=== PATIENT | female | born 1945 | race Caucasian/White ===

== ENCOUNTER 2019-10-13 04:40 | Inpatient (IN) | payer OTHER ==
--- NOTE | 2019-10-13 04:59 | PDOC ---
History of Present Illness - General Chief Complaint: Pain, Acute Stated Complaint: UPPER ABDOMINAL/LOWER CHEST PAIN Time Seen by Provider: 10/13/19 04:40 - History of Present Illness Initial Comments: Martina Atkinson is a 74 y/o female with PMH significant for breast CA s/p bilateral mastectomy, colon perforation 2/2 colonoscopy s/p colostomy and reversal, HTN, a-fib (on eliquis), bilateral knee replacements, presenting today with abdominal pain. Reports that she went to her daughter's place over the long weekend and had brunch and a BBQ. Pain is worse in the epigastric and RUQ areas. Pain is intermittent and sharp without anything that brings it on or makes it worse. Reports nausea without vomiting. Pain started at 8pm today. Reports increased bowel movements but no diarrhea or constipation. No fever/chills. No cough. No dysuria. 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 Home Medications: Ambulatory Orders Amlodipine Besylate [Norvasc -] 5 mg PO DAILY 10/13/19 Apixaban [Eliquis] 5 mg PO BID 10/13/19 Metoprolol Succinate 50 mg PO DAILY 10/13/19 Anemia: No Asthma: No Cancer: Yes (BILATERAL BREAST CA 1991,RT) Cardiac Disorders: No CVA: No COPD: No CHF: No Dementia: No Diabetes: No GI Disorders: Yes (PERFORATED COLON 2001 AFTER COLONOSCOPY) Disorders: No HTN: Yes Hypercholesterolemia: No Liver Disease: No Seizures: No Thyroid Disease: Yes (HYPERPARATHYROID 2005) - Surgical History Abdominal Surgery: Yes (COLON RESECTION FROM COLONOSCOPY PERFORATION,TEMP COLOSTOMY,REVERSAL,) Appendectomy: No Cardiac Surgery: No Cholecystectomy: No Lung Surgery: No Neurologic Surgery: No Orthopedic Surgery: Yes - Psycho-Social/Smoking History Smoking History: Never smoked Have you smoked in the past 12 months: No If you are a former smoker, when did you quit?: - Substance Abuse Hx (Audit-C & DAST Scrn) How often the patient has a drink containing alcohol: Never Score: In Men: 4 or > Positive; In Women: 3 or > Positive: 0 Screen Result (Pos requires Nsg. Audit-10AR): Negative In the last yr the pt used illegal drug/Rx for NonMed reason: No Score: Yes response is considered Positive: 0 Screen Result (Positive result requires Nsg. DAST-10): Negative Review of Systems - Review of Systems Comments:: GENERAL/CONSTITUTIONAL: No fever or chills. No weakness._ HEAD, EYES, EARS, NOSE AND THROAT: No change in vision. No change in hearing. No sore throat._ CARDIOVASCULAR: No chest pain or shortness of breath_ RESPIRATORY: Denies cough, hemoptysis_ GASTROINTESTINAL: Reports abdominal pain. Reports increased in bowel movements. No nausea, vomiting, diarrhea or constipation._ GENITOURINARY: No dysuria, frequency, or change in urination._ MUSCULOSKELETAL: No joint or muscle swelling or pain. No neck or back pain._ SKIN: No rash_ NEUROLOGIC: No headache, vertigo, loss of consciousness, or change in strength/sensation._ ENDOCRINE: No increased thirst. No abnormal weight change_ HEMATOLOGIC/LYMPHATIC: No anemia, easy bleeding, or history of blood clots._ ALLERGIC/IMMUNOLOGIC: No hives or skin allergy._ *Physical Exam - Vital Signs Last Vital Signs Temp Pulse Resp BP Pulse Ox 98.1 F 81 17 154/89 98 10/13/19 04:40 10/13/19 04:40 10/13/19 04:40 10/13/19 04:40 10/13/19 04:40 - Physical Exam GENERAL: Awake, alert, and oriented to person/place/time, in no acute distress_ HEAD: No signs of trauma, normocephalic, atraumatic _ EYES: PERRLA, EOMI, sclera anicteric, conjunctiva clear_ ENT: Hearing grossly normal, nares patent, oropharynx clear without exudates. No uvular deviation. Moist mucosa_ NECK: Normal ROM, supple, no lymphadenopathy, JVD, or masses_ LUNGS: No distress, speaks in full sentences, clear to auscultation bilaterally _ HEART: Regular rate and rhythm, normal S1 and S2, no murmurs appreciated, peripheral pulses normal and equal bilaterally._ ABDOMEN: Soft, minimal diffuse TTP worse in the RUQ and epigastrium, normoactive bowel sounds. No guarding, no rebound. No masses_ EXTREMITIES: Normal inspection, Normal range of motion, no edema. No clubbing or cyanosis_ NEUROLOGICAL: Cranial nerves II through XII grossly intact. Normal speech, normal gait, no focal sensorimotor deficits _ SKIN: Warm, Dry, normal turgor, no rashes or lesions noted_ ED Treatment Course - LABORATORY CBC & Chemistry Diagram: 10/13/19 05:05 10/13/19 05:05 Medical Decision Making - Medical Decision Making 10/13/19 05:10 74F presenting with epigastric and RUQ abdominal pain that started at 8pm today. -cbc, cmp -ekg, trop, cxr -lactic -lipase -coags -CT abd/pelv with IV contrast 10/13/19 05:15 EKG shows 82 bpm, sinus rhythm with PACs, nml axis, no ST elevation, QTc 436. 10/13/19 06:26 Labs reviewed. Lactic elevated. Will start fluids. Laboratory Last Values WBC 8.8 K/mm3 (4.0-10.0) 10/13/19 05:05 RBC 4.61 M/mm3 (3.60-5.2) 10/13/19 05:05 Hgb 14.5 GM/dL (10.7-15.3) 10/13/19 05:05 Hct 43.1 % (32.4-45.2) 10/13/19 05:05 MCV 93.4 fl (80-96) 10/13/19 05:05 MCH 31.5 pg (25.7-33.7) 10/13/19 05:05 MCHC 33.7 g/dl (32.0-36.0) 10/13/19 05:05 RDW 13.9 % (11.6-15.6) 10/13/19 05:05 Plt Count 269 K/MM3 (134-434) 10/13/19 05:05 MPV 9.1 fl (7.5-11.1) 10/13/19 05:05 Absolute Neuts (auto) 7.2 K/mm3 (1.5-8.0) 10/13/19 05:05 Neutrophils % 82.1 % (42.8-82.8) 10/13/19 05:05 Lymphocytes % 12.6 % (8-40) 10/13/19 05:05 Monocytes % 4.6 % (3.8-10.2) 10/13/19 05:05 Eosinophils % 0.3 % (0-4.5) 10/13/19 05:05 Basophils % 0.4 % (0-2.0) 10/13/19 05:05 Nucleated RBC % 0 % (0-0) 10/13/19 05:05 PT with INR 12.70 SEC (9.7-13.0) 10/13/19 05:05 INR 1.08 (0.83-1.09) 10/13/19 05:05 PTT (Actin FS) 34.1 SECONDS (25.2-36.5) 10/13/19 05:05 Sodium 136 mmol/L (136-145) 10/13/19 05:05 Potassium 4.2 mmol/L (3.5-5.1) 10/13/19 05:05 Chloride 97 mmol/L (98-107) L 10/13/19 05:05 Carbon Dioxide 31 mmol/L (21-32) 10/13/19 05:05 Anion Gap 9 MMOL/L (8-16) 10/13/19 05:05 BUN 15.4 mg/dL (7-18) 10/13/19 05:05 Creatinine 0.9 mg/dL (0.55-1.3) 10/13/19 05:05 Est GFR (CKD-EPI)AfAm 71.98 10/13/19 05:05 Est GFR (CKD-EPI)NonAf 62.11 10/13/19 05:05 Random Glucose 162 mg/dL (74-106) H 10/13/19 05:05 Lactic Acid 3.0 mmol/L (0.4-2.0) H* 10/13/19 05:05 Calcium 9.6 mg/dL (8.5-10.1) 10/13/19 05:05 Total Bilirubin 1.4 mg/dL (0.2-1) H 10/13/19 05:05 AST 16 U/L (15-37) 10/13/19 05:05 ALT 18 U/L (13-61) 10/13/19 05:05 Alkaline Phosphatase 98 U/L (45-117) 10/13/19 05:05 Creatine Kinase 35 U/L (26-192) 10/13/19 05:05 Troponin I < 0.02 ng/ml (0.00-0.05) 10/13/19 05:05 Total Protein 7.6 g/dl (6.4-8.2) 10/13/19 05:05 Albumin 3.9 g/dl (3.4-5.0) 10/13/19 05:05 Lipase 70 U/L (73-393) L 10/13/19 05:05 10/13/19 06:27 CXR negative for acute intrathoracic pathology. 10/13/19 06:44 Pt reassessed. Reports vomiting a few times after initial presentation. 10/13/19 07:00 Pt s/o to Dr. Euceda pending CT abd and RUQ US and disposition. Discharge - Discharge Information Problems reviewed: Yes Clinical Impression/Diagnosis: SBO (small bowel obstruction) Condition: Fair - Follow up/Referral - Patient Discharge Instructions - Post Discharge Activity
[2019-10-13 05:27] LABS: BASO % 0.4 % (0-2.0); EOS % 0.3 % (0-4.5); HEMATOCRIT 43.1 % (32.4-45.2); HEMOGLOBIN 14.5 GM/dL (10.7-15.3); LYMPH % 12.6 % (8-40); MCH 31.5 pg (25.7-33.7); MCHC 33.7 g/dl (32.0-36.0); MEAN CELL VOLUME 93.4 fl (80-96); MEAN PLT VOLUME 9.1 fl (7.5-11.1); MONO % 4.6 % (3.8-10.2); NEUT % 82.1 % (42.8-82.8); PLATELET COUNT 269 K/MM3 (134-434); RBC 4.61 M/mm3 (3.60-5.2); RDW 13.9 % (11.6-15.6); WHITE BLOOD COUNT 8.8 K/mm3 (4.0-10.0)
[2019-10-13 05:38] LABS: INR 1.08 (0.83-1.09); PROTHROMBIN TIME (PATIENT) 12.7 SEC (9.7-13.0)
[2019-10-13 05:40] LABS: ACTIVATED PTT 34.1 SECONDS (25.2-36.5)
--- NOTE | 2019-10-13 05:46 | PDOC ---
Attending Attestation - Resident Resident Name: AbelKelvin - ED Attending Attestation I have performed the following: I have examined & evaluated the patient, The case was reviewed & discussed with the resident, I agree w/resident's findings & plan, Exceptions are as noted - HPI HPI: 10/13/19 05:44 74 F with h/o breast CA s/p b/l mastectomy, perforated colon s/p colostomy s/p reversal, HTN, afib on eliquis, presenting with abdominal pain. Pt states that it began last night after eating and worsened today. Denies any N/V. Denies diarrhea but reports multiple bowel movements. No F/C. No abdominal distention. - Physicial Exam PE: 10/13/19 05:45 See resident exam - Medical Decision Making 10/13/19 05:45 74 F with RUQ abdominal pain. Will evaluate for leonid. Also consider SBO given prior surgeries. - Labs - CTAP - RUQ sono when available Discharge - Discharge Information Problems reviewed: Yes Clinical Impression/Diagnosis: SBO (small bowel obstruction) Condition: Fair - Follow up/Referral - Patient Discharge Instructions - Post Discharge Activity
[2019-10-13 05:51] LABS: ALBUMIN 3.9 g/dl (3.4-5.0); ALK PHOS 98 U/L (45-117); ANION GAP 9 MMOL/L (8-16); BILIRUBIN,TOTAL 1.4 mg/dL (0.2-1); BLOOD UREA NITROGEN 15.4 mg/dL (7-18); CALCIUM 9.6 mg/dL (8.5-10.1); CHLORIDE 97 mmol/L (98-107); CO2 31 mmol/L (21-32); CREATININE 0.9 mg/dL (0.55-1.3); GLUCOSE,RANDOM 162 mg/dL (74-106); LIPASE 70 U/L (73-393); POTASSIUM 4.2 mmol/L (3.5-5.1); SGOT/AST 16 U/L (15-37); SGPT/ALT 18 U/L (13-61); SODIUM 136 mmol/L (136-145); TOT PROT 7.6 g/dl (6.4-8.2)
[2019-10-13] MEDS ORDERED: SODIUM CHLORIDE 0.9% 500 ML INFUS.BAG IV ONE ×2 (06:27→07:57)
[2019-10-13] MEDS ORDERED: ONDANSETRON 4 MG/2 ML VIAL IVPUSH ONE (07:32)
--- NOTE | 2019-10-13 10:19 | EKG ---
Test Reason : Blood Pressure : / mmHG Vent. Rate : 082 BPM Atrial Rate : 082 BPM P-R Int : 164 ms QRS Dur : 086 ms QT Int : 374 ms P-R-T Axes : 025 043 047 degrees QTc Int : 436 ms SINUS RHYTHM WITH PREMATURE ATRIAL COMPLEXES NONSPECIFIC ST ABNORMALITY ABNORMAL ECG NO PREVIOUS ECGS AVAILABLE Confirmed by Mmaie Gonzales ([id number]) on 10/13/2019 10:18:55 AM Referred By: Confirmed By:Mamie Gonzales
--- NOTE | 2019-10-13 10:53 | PDOC ---
*Physical Exam - Vital Signs Last Vital Signs Temp Pulse Resp BP Pulse Ox 98.0 F 81 16 142/76 95 10/13/19 06:52 10/13/19 06:52 10/13/19 06:52 10/13/19 06:52 10/13/19 06:52 <Quinn Euceda - Last Filed: 10/13/19 11:30> - Vital Signs Last Vital Signs Temp Pulse Resp BP Pulse Ox 98.0 F 81 16 142/76 95 10/13/19 06:52 10/13/19 06:52 10/13/19 06:52 10/13/19 06:52 10/13/19 06:52 <Shahnaz Singh Kayla - Last Filed: 10/13/19 12:25> ED Treatment Course - LABORATORY CBC & Chemistry Diagram: 10/13/19 05:05 10/13/19 05:05 - ADDITIONAL ORDERS Additional order review: Laboratory Results 10/13/19 10/13/19 10/13/19 05:05 05:05 05:05 PT with INR 12.70 INR 1.08 PTT (Actin FS) 34.1 Sodium 136 Potassium 4.2 Chloride 97 L Carbon Dioxide 31 Anion Gap 9 BUN 15.4 Creatinine 0.9 Est GFR (CKD-EPI)AfAm 71.98 Est GFR (CKD-EPI)NonAf 62.11 Random Glucose 162 H Lactic Acid 3.0 H* Calcium 9.6 Total Bilirubin 1.4 H AST 16 ALT 18 Alkaline Phosphatase 98 Creatine Kinase 35 Troponin I < 0.02 Total Protein 7.6 Albumin 3.9 Lipase 70 L 10/13/19 05:05 RBC 4.61 MCV 93.4 MCHC 33.7 RDW 13.9 MPV 9.1 Neutrophils % 82.1 Lymphocytes % 12.6 Monocytes % 4.6 Eosinophils % 0.3 Basophils % 0.4 - Medications Given in the ED: ED Medications Discontinued Medications Generic Name Dose Route Start Last Admin Trade Name Freq PRN Reason Stop Dose Admin Ondansetron HCl 4 mg 10/13/19 07:32 10/13/19 07:44 Zofran Injection IVPUSH 10/13/19 07:33 4 mg ONCE ONE Administration Sodium Chloride 500 ml 10/13/19 06:27 10/13/19 06:44 Normal Saline - IV 10/13/19 06:28 500 ml ONCE ONE Administration Sodium Chloride 1,000 ml 10/13/19 07:57 10/13/19 10:26 Normal Saline - IV 10/13/19 07:58 1,000 ml ONCE ONE Administration <Quinn Euceda - Last Filed: 10/13/19 11:30> - LABORATORY CBC & Chemistry Diagram: 10/13/19 05:05 10/13/19 05:05 - ADDITIONAL ORDERS Additional order review: Laboratory Results 10/13/19 10/13/19 10/13/19 05:05 05:05 05:05 PT with INR 12.70 INR 1.08 PTT (Actin FS) 34.1 Sodium 136 Potassium 4.2 Chloride 97 L Carbon Dioxide 31 Anion Gap 9 BUN 15.4 Creatinine 0.9 Est GFR (CKD-EPI)AfAm 71.98 Est GFR (CKD-EPI)NonAf 62.11 Random Glucose 162 H Lactic Acid 3.0 H* Calcium 9.6 Total Bilirubin 1.4 H AST 16 ALT 18 Alkaline Phosphatase 98 Creatine Kinase 35 Troponin I < 0.02 Total Protein 7.6 Albumin 3.9 Lipase 70 L 10/13/19 05:05 RBC 4.61 MCV 93.4 MCHC 33.7 RDW 13.9 MPV 9.1 Neutrophils % 82.1 Lymphocytes % 12.6 Monocytes % 4.6 Eosinophils % 0.3 Basophils % 0.4 - Medications Given in the ED: ED Medications Discontinued Medications Generic Name Dose Route Start Last Admin Trade Name Freq PRN Reason Stop Dose Admin Benzocaine/Butamben/Tetracaine HCl 1 spray 10/13/19 10:56 10/13/19 11:38 Cetacaine [place] - TP 10/13/19 10:57 1 spray ONCE ONE Administration Lidocaine HCl 10 applic 10/13/19 10:56 10/13/19 11:38 Xylocaine 2% Jelly TP 10/13/19 10:57 10 applic ONCE ONE Administration Ondansetron HCl 4 mg 10/13/19 07:32 10/13/19 07:44 Zofran Injection IVPUSH 10/13/19 07:33 4 mg ONCE ONE Administration Sodium Chloride 500 ml 10/13/19 06:27 10/13/19 06:44 Normal Saline - IV 10/13/19 06:28 500 ml ONCE ONE Administration Sodium Chloride 1,000 ml 10/13/19 07:57 10/13/19 10:26 Normal Saline - IV 10/13/19 07:58 1,000 ml ONCE ONE Administration <Shahnaz Singh - Last Filed: 10/13/19 12:25> Medical Decision Making - Medical Decision Making Patient Signed out to me from night team with abdominal pain pending CT and US US: Cholelithiasis, no evidence of cholecystitis CT: Partial high grade SBO Re-assessment: Patient informed about her SBO, told patient she will need surgical consult and admission - Tylenol for pain control Plan: NPO, IV fluids, NG tube, Surgical consult, admission to hospital - NG tube placed on continuous low suction Surgical Consult: I spoke with Dr. Raman, he is aware of patient, will come and evaluate Dispo: Admission to hospital 10/13/19 11:29 - Patient microblogged for admission <Quinn Euceda - Last Filed: 10/13/19 11:30> - Medical Decision Making agree with resident note signed out at 7AM pending imaging no pain nausea CT with high grade partial SBO. cholelithiasis no cholecystitis NGT NPO d/w Dr Raman for consultation admit t hospitalist group for medical management, NPO, pain control. NGT, SBO management, close observation. 10/13/19 12:24 <Shahnaz Singh - Last Filed: 10/13/19 12:25> Discharge - Discharge Information Problems reviewed: Yes - Admission Yes <Quinn Euceda - Last Filed: 10/13/19 11:30> <Shahnaz Singh - Last Filed: 10/13/19 12:25> - Discharge Information Clinical Impression/Diagnosis: SBO (small bowel obstruction) Condition: Fair
[2019-10-13] MEDS ORDERED: LIDOCAINE HCL 2% JELLY (30 ML/TUBE) TP ONE (10:56)
[2019-10-13] MEDS ORDERED: TETRACAINE/BENZOCAINE/BUTAMBEN 20 GM SPR TP ONE (10:56)
[2019-10-13] MEDS ORDERED: LACTATED RINGERS SOLUTION 1,000 ML/1,000 ML INFUS.BAG IV SCH (11:00)
[2019-10-13] MEDS ORDERED: LIDOCAINE HCL 2% JELLY (5 ML/TUBE) ONE (11:00)
[2019-10-13] MEDS ORDERED: BENZOCAINE 20% 57 GM BOTTLE TP ONE (11:01)
[2019-10-13] MEDS ORDERED: ACETAMINOPHEN 1000 MG/100 ML VIAL (NON FORMULARY) IVPB ONE (11:30)
[2019-10-13] MEDS ORDERED: ACETAMINOPHEN INJECTION 100 ML IVPB ONE (12:17)
--- NOTE | 2019-10-13 14:56 | HP ---
CHIEF COMPLAINT: abdominal pain PCP: Daisy Wilson HISTORY OF PRESENT ILLNESS: 74 yo F PMH of breast Ca (s/p b/l mastectomy @ 46yo) , Afib ( on eliquis, s/p ablation and cardioversion 04/2019) colon perforation 2/2 colonoscopy s/p colostomy and reversal, hx of GBS ( from flu shot)presents to ED for abdominal pain. pt states that the pain was RLQ and sharp. she states earlier in the day she had > 5 loose BM . she endorsed nausea and vomiting x3. she denies any prior events. denies fevers and chills ER course was notable for: (1) Abdomen/ Pelvis CT- partial SBO (2)2.5 L IVF (3)Surgery consulted, recommending NGT , NPO Recent Travel: denies PAST MEDICAL HISTORY:see above PAST SURGICAL HISTORY: parathyroidectomy Social History: Smoking: prior hx Alcohol:denies Drugs: denies Family Hx: non contributory Allergies Influenza Virus Vaccines Allergy (Severe, Verified 10/13/19 04:53) GUILLAIN-BARRE SYNDROME HOME MEDICATIONS: Home Medications Medication Instructions Recorded Amlodipine Besylate [Norvasc -] 5 mg PO DAILY 10/13/19 Apixaban [Eliquis] 0 mg PO BID 10/13/19 Metoprolol Succinate 25 mg PO DAILY 10/13/19 REVIEW OF SYSTEMS CONSTITUTIONAL: Absent: fever, chills, diaphoresis, generalized weakness, malaise, loss of appetite, weight change HEENT: Absent: rhinorrhea, nasal congestion, throat pain, throat swelling, difficulty swallowing, mouth swelling, ear pain, eye pain, visual changes CARDIOVASCULAR: Absent: chest pain, syncope, palpitations, irregular heart rate, lightheadedness, peripheral edema RESPIRATORY: Absent: cough, shortness of breath, dyspnea with exertion, orthopnea, wheezing, stridor, hemoptysis GASTROINTESTINAL: Present: abdomen pain, distension, nausea, vomiting Absent: abdominal distension, diarrhea, constipation, melena, hematochezia GENITOURINARY: Absent: dysuria, frequency, urgency, hesitancy, hematuria, flank pain, genital pain MUSCULOSKELETAL: Absent: myalgia, arthralgia, joint swelling, back pain, neck pain SKIN: Absent: rash, itching, pallor HEMATOLOGIC/IMMUNOLOGIC: Absent: easy bleeding, easy bruising, lymphadenopathy, frequent infections ENDOCRINE: Absent: unexplained weight gain, unexplained weight loss, heat intolerance, cold intolerance NEUROLOGIC: Absent: headache, focal weakness or paresthesias, dizziness, unsteady gait, seizure, mental status changes, bladder or bowel incontinence PHYSICAL EXAMINATION Vital Signs - 24 hr 10/13/19 10/13/19 10/13/19 04:40 04:50 06:35 Temperature 98.1 F 98.5 F Pulse Rate 81 Pulse Rate [ 77 80 Radial] Respiratory 17 18 18 Rate Blood Pressure 154/89 Blood Pressure 143/86 142/76 [Right Arm] O2 Sat by Pulse 98 97 96 Oximetry (%) 10/13/19 06:52 Temperature 98.0 F Pulse Rate Pulse Rate [ 81 Radial] Respiratory 16 Rate Blood Pressure Blood Pressure 142/76 [Right Arm] O2 Sat by Pulse 95 Oximetry (%) GENERAL: Awake, alert, and fully oriented, in no acute distress. HEAD: Normal with no signs of trauma. EYES: Pupils equal, round and reactive to light, extraocular movements intact EARS, NOSE, THROAT: oropharynx clear without exudates. Moist mucous membranes. NGT in place LUNGS: Breath sounds equal, clear to auscultation bilaterally. No accessory muscle use. HEART: Regular rate and rhythm, normal S1 and S2 without murmur ABDOMEN: Soft, nontender, not distended, bowel sounds present , no guarding, no rebound MUSCULOSKELETAL: Normal range of motion at all joints. No bony deformities or tenderness. No CVA tenderness. UPPER EXTREMITIES: 2+ pulses, warm, well-perfused. No cyanosis. No clubbing. No peripheral edema. LOWER EXTREMITIES: 2+ pulses, warm, well-perfused. No calf tenderness. No peripheral edema. NEUROLOGICAL: Cranial nerves II-XII intact. Normal speech. Normal gait. PSYCHIATRIC: Cooperative. Good eye contact. Appropriate mood and affect. SKIN: Warm, dry, normal turgor, no rashes or lesions noted, normal capillary refill. Laboratory Last Values WBC 8.8 K/mm3 (4.0-10.0) 10/13/19 05:05 RBC 4.61 M/mm3 (3.60-5.2) 10/13/19 05:05 Hgb 14.5 GM/dL (10.7-15.3) 10/13/19 05:05 Hct 43.1 % (32.4-45.2) 10/13/19 05:05 MCV 93.4 fl (80-96) 10/13/19 05:05 MCH 31.5 pg (25.7-33.7) 10/13/19 05:05 MCHC 33.7 g/dl (32.0-36.0) 10/13/19 05:05 RDW 13.9 % (11.6-15.6) 10/13/19 05:05 Plt Count 269 K/MM3 (134-434) 10/13/19 05:05 MPV 9.1 fl (7.5-11.1) 10/13/19 05:05 Absolute Neuts (auto) 7.2 K/mm3 (1.5-8.0) 10/13/19 05:05 Neutrophils % 82.1 % (42.8-82.8) 10/13/19 05:05 Lymphocytes % 12.6 % (8-40) 10/13/19 05:05 Monocytes % 4.6 % (3.8-10.2) 10/13/19 05:05 Eosinophils % 0.3 % (0-4.5) 10/13/19 05:05 Basophils % 0.4 % (0-2.0) 10/13/19 05:05 Nucleated RBC % 0 % (0-0) 10/13/19 05:05 PT with INR 12.70 SEC (9.7-13.0) 10/13/19 05:05 INR 1.08 (0.83-1.09) 10/13/19 05:05 PTT (Actin FS) 34.1 SECONDS (25.2-36.5) 10/13/19 05:05 Sodium 136 mmol/L (136-145) 10/13/19 05:05 Potassium 4.2 mmol/L (3.5-5.1) 10/13/19 05:05 Chloride 97 mmol/L (98-107) L 10/13/19 05:05 Carbon Dioxide 31 mmol/L (21-32) 10/13/19 05:05 Anion Gap 9 MMOL/L (8-16) 10/13/19 05:05 BUN 15.4 mg/dL (7-18) 10/13/19 05:05 Creatinine 0.9 mg/dL (0.55-1.3) 10/13/19 05:05 Est GFR (CKD-EPI)AfAm 71.98 10/13/19 05:05 Est GFR (CKD-EPI)NonAf 62.11 10/13/19 05:05 Random Glucose 162 mg/dL (74-106) H 10/13/19 05:05 Lactic Acid 1.9 mmol/L (0.4-2.0) 10/13/19 11:30 Calcium 9.6 mg/dL (8.5-10.1) 10/13/19 05:05 Total Bilirubin 1.4 mg/dL (0.2-1) H 10/13/19 05:05 AST 16 U/L (15-37) 10/13/19 05:05 ALT 18 U/L (13-61) 10/13/19 05:05 Alkaline Phosphatase 98 U/L (45-117) 10/13/19 05:05 Creatine Kinase 35 U/L (26-192) 10/13/19 05:05 Troponin I < 0.02 ng/ml (0.00-0.05) 10/13/19 05:05 Total Protein 7.6 g/dl (6.4-8.2) 10/13/19 05:05 Albumin 3.9 g/dl (3.4-5.0) 10/13/19 05:05 Lipase 70 U/L (73-393) L 10/13/19 05:05 Blood Type A POSITIVE 10/13/19 11:30 Antibody Screen Negative 10/13/19 11:30 ASSESSMENT/PLAN: 74 yo F PMH of breast Ca (s/p b/l mastectomy @ 46yo) , colon perforation 2/2 colonoscopy s/p colostomy and reversal, hx of GBS ( from flu shot)presents to ED for abdominal pain. Pt is admitted for SBO SBO - abdomen / pelvis CT reviewed. high grade partial SBO. likely 2/2 adhesions - Surgery consulted, Dr. Raman - NPO, IVF, NGT - cont to monitor - lactic acidosis improved 3--> 1.9 HTN - hold PO antihypertensives -Lopressor 5 IV for SBP> 150 DVT ppx: hold chemical ppx in setting of NGT, SCDs F/E/N - IV NS @ 100 cc/hr - monitor lytes - NPO Dispo: admit to medicine Visit type - Emergency Visit Emergency Visit: Yes ED Registration Date: 10/13/19 Care time: The patient presented to the Emergency Department on the above date and was hospitalized for further evaluation of their emergent condition. - New Patient This patient is new to me today: Yes - Critical Care Critical Care patient: No ATTENDING PHYSICIAN STATEMENT I saw and evaluated the patient. I reviewed the resident's note and discussed the case with the resident. I agree with the resident's findings and plan as documented. SUBJECTIVE: OBJECTIVE: ASSESSMENT AND PLAN:
--- NOTE | 2019-10-13 15:24 | PN ---
Teaching Attending Note Name of Resident: Kassy De Leon ATTENDING PHYSICIAN STATEMENT I saw and evaluated the patient. I reviewed the resident's note and discussed the case with the resident. I agree with the resident's findings and plan as documented. SUBJECTIVE:74 yo F PMH of breast Ca (s/p b/l mastectomy @ 46yo) , colon perforation 2/2 colonoscopy s/p colostomy and reversal, hx of GBS ( from flu shot)presents to ED for abdominal pain. pt states that the pain was RLQ and sharp. she states earlier in the day she had > 5 loose BM . she endorsed nausea and vomiting x3 in the ER. she denies any prior events. and no fever, no chills, OBJECTIVE: appears comfortable nad alert awake oriented into 3, vss neck supple no jvd cvs s1/s2/0 chest ctab abd soft, tender to deep palpation R paraumbijlical, bs+ and normal,. ext no c/c/e neuro non focal ASSESSMENT AND PLAN Partial SBO npo, ivf and NGT to low suctioning, surgical consult, afib continue home meds, htn will continue current meds, dvt prophylaxis scds,
--- NOTE | 2019-10-13 15:26 | CONSULT ---
- Consultation REQUESTING PROVIDER: Kinsey TREJO CONSULT REQUEST: We have been asked to surgically evaluate this patient for intestinal obstruction. PCP:Carina Booth MD HISTORY OF PRESENT ILLNESS: CTSP who presented for e/m of crampy abdominal pain which is generalized after eating; she is passing flatus and denies n/v. PMHx: HTN/afib PSHx: Hartmans procedure and subsequent reversal after colonic perforation du ring colonoscopy/incarcerated incisional hernia repair w/mesh. Home Medications Medication Instructions Recorded Amlodipine Besylate [Norvasc -] 5 mg PO DAILY 10/13/19 Apixaban [Eliquis] 0 mg PO BID 10/13/19 Metoprolol Succinate 25 mg PO DAILY 10/13/19 Allergies Allergy/AdvReac Type Severity Reaction Status Date / Time Influenza Virus Vaccines Allergy Severe GUILLAIN-BARRE Verified 10/13/19 04:53 SYNDROME REVIEW OF SYSTEMS: CONSTITUTIONAL: Absent: fever, chills, diaphoresis, generalized weakness, malaise, loss of appetite, weight change CARDIOVASCULAR: Absent: chest pain, syncope, palpitations, Present: irregular heart rate, lightheadedness, Absent: peripheral edema RESPIRATORY: Absent: cough, shortness of breath, dyspnea with exertion, wheezing, stridor, hemoptysis GASTROINTESTINAL: Absent: abdominal pain, abdominal distension, nausea, vomiting, diarrhea, constipation, melena, hematochezia GENITOURINARY: Absent: dysuria, frequency, urgency, hesitancy, hematuria, flank pain, genital pain MUSCULOSKELETAL: Absent: myalgia, arthralgia, joint swelling, back pain, neck pain SKIN: Absent: rash, itching, pallor HEMATOLOGIC/IMMUNOLOGIC: Absent: easy bleeding, easy bruising, lymphadenopathy NEUROLOGIC: Absent: headache, focal weakness, paresthesias, dizziness, unsteady gait, seizure, mental status changes, bladder or bowel incontinence PSYCHIATRIC: Absent: anxiety, depression, suicidal or homicidal ideation, hallucinations. PHYSICAL EXAM: GENERAL: Awake, alert, and fully oriented, in no acute distress. HEAD: Normal with no signs of trauma. EYES: PERRL, sclera anicteric, conjunctiva clear. NECK: Normal ROM, supple without lymphadenopathy, JVD, or masses. ABDOMEN: Soft, nontender, not distended, normoactive bowel sounds, no guarding, no rebound, no masses. No organomegaly. Healed scras; no hernias. MUSCULOSKELETAL: Normal ROM at all joints. No bony deformities or tenderness. No CVA tenderness. UPPER EXTREMITIES: 2+ pulses, warm, well-perfused. No cyanosis. Cap refill <2 seconds. No peripheral edema. LOWER EXTREMITIES: 2+ pulses, warm, well-perfused. No calf tenderness. No peripheral edema. NEUROLOGICAL: Normal speech, gait not observed. PSYCH: Cooperative. Good eye contact. Appropriate mood and affect. SKIN: Warm, dry, normal turgor, no rashes or lesions noted. Vital Signs Temperature 98.0 F 10/13/19 06:52 Pulse Rate 81 10/13/19 06:52 Respiratory Rate 16 10/13/19 06:52 Blood Pressure 142/76 10/13/19 06:52 O2 Sat by Pulse Oximetry (%) 95 10/13/19 06:52 Lab Results WBC 8.8 K/mm3 (4.0-10.0) 10/13/19 05:05 RBC 4.61 M/mm3 (3.60-5.2) 10/13/19 05:05 Hgb 14.5 GM/dL (10.7-15.3) 10/13/19 05:05 Hct 43.1 % (32.4-45.2) 10/13/19 05:05 MCV 93.4 fl (80-96) 10/13/19 05:05 MCHC 33.7 g/dl (32.0-36.0) 10/13/19 05:05 RDW 13.9 % (11.6-15.6) 10/13/19 05:05 Plt Count 269 K/MM3 (134-434) 10/13/19 05:05 INR 1.08 (0.83-1.09) 10/13/19 05:05 Sodium 136 mmol/L (136-145) 10/13/19 05:05 Potassium 4.2 mmol/L (3.5-5.1) 10/13/19 05:05 Chloride 97 mmol/L (98-107) L 10/13/19 05:05 Carbon Dioxide 31 mmol/L (21-32) 10/13/19 05:05 Anion Gap 9 MMOL/L (8-16) 10/13/19 05:05 BUN 15.4 mg/dL (7-18) 10/13/19 05:05 Creatinine 0.9 mg/dL (0.55-1.3) 10/13/19 05:05 Random Glucose 162 mg/dL (74-106) H 10/13/19 05:05 Calcium 9.6 mg/dL (8.5-10.1) 10/13/19 05:05 Blood Type A POSITIVE 10/13/19 11:30 Antibody Screen Negative 10/13/19 11:30 CT scan a/p reviewed IMP: partial sbo PLAN: NPO/IVF/NGT/serial abdominal x rays; patient had a BM in the ED and is passing flatus. Alo Raman MD FACS
[2019-10-13] MEDS: SODIUM CHLORIDE 1,000 ML IV SCH (16:12)
[2019-10-13 17:17] VITALS: BMI 25.5
[2019-10-13] MEDS ORDERED: METOPROLOL TARTRATE 5 MG/5 ML VIAL IVPUSH PRN (18:08)
[2019-10-13] MEDS ORDERED: METOPROLOL TARTRATE 5 MG/5 ML VIAL ONE (18:29)
[2019-10-14] MEDS ORDERED: METOPROLOL TARTRATE 5 MG/5 ML VIAL IVPB PRN (02:11)
[2019-10-14] MEDS: SODIUM CHLORIDE 1,000 ML IV SCH (03:03)
[2019-10-14 08:26] LABS: BASO % 0.4 % (0-2.0); EOS % 2.1 % (0-4.5); HEMATOCRIT 35.4 % (32.4-45.2); HEMOGLOBIN 11.8 GM/dL (10.7-15.3); MCH 31.3 pg (25.7-33.7); MCHC 33.4 g/dl (32.0-36.0); MEAN CELL VOLUME 93.9 fl (80-96); MONO % 10.3 % (3.8-10.2); NEUT % 60.2 % (42.8-82.8); PLATELET COUNT 206 K/MM3 (134-434); RBC 3.77 M/mm3 (3.60-5.2); RDW 14.2 % (11.6-15.6)
[2019-10-14 08:36] LABS: BILIRUBIN,TOTAL 1.6 mg/dL (0.2-1); CALCIUM 8.4 mg/dL (8.5-10.1); CREATININE 0.7 mg/dL (0.55-1.3); MAGNESIUM 2.2 mg/dL (1.8-2.4); PHOSPHOROUS 3.4 mg/dL (2.5-4.9); POTASSIUM 3.7 mmol/L (3.5-5.1); TOT PROT 5.8 g/dl (6.4-8.2)
--- NOTE | 2019-10-14 08:42 | PN ---
Progress Note (short form) - Note Progress Note: GENERAL SURGERY 74 yo female admitted with PSBO. Pertinent PMHx includes Hartmans procedure and subsequent reversal after colonic perforation during colonoscopy/incarcerated incisional hernia repair w/mesh. Patient ws made NPO and NGT inserted and secured at 60cm last night. This morning, found the ngt essentially was out (only 10cm remained in her right nare). Patient states she passed flatus this morning as well as had 2 soft/formed bm's last night while in the ED Denies n/v/f/c, CP, palpitations, SOB, DÍAZ or ABD pain. AVSS. Afebrile. Gen: a&o. nad ENT: ngt dc'd on rounds as it was essentially out Pulm: unlabored respirations on ra Cor: rrr ABD: soft. nt. nd. + bowel sounds LE: all compartments soft. nt. Problem List - Problems (1) SBO (small bowel obstruction) Assessment/Plan: 74 yo admitted with PSBO. Clinically she has improved. ABD pain free. n/v resolved. Passing flatus and had BMs. f/u AXR this morning. If resolved will begin clear diet and advance as tolerated. Cont medical management Above pland discussed with Dr. Raman and agrees. Code(s): K56.609 - UNSP INTESTNL OBST, UNSP TO PARTIAL VERSUS COMPLETE OBST
--- NOTE | 2019-10-14 12:35 | PN ---
Physical Exam: SUBJECTIVE: Patient seen and examined. she denies any abdominal pain, no nausea or vomiting. having flatus, had BM yesterday. OBJECTIVE: Patient is a 74 year old female with a past medical history of breast cancer (s/p b/l mastectomy) ,Afib (on eliquis, s/p ablation and cardioversion 04/2019) colon perforation 2/2 colonoscopy s/p colostomy and reversal, hx of GBS (from flu shot) presents to ED for abdominal pain. imaging: Abdomen/ Pelvis CT- partial SBO Vital Signs Period Temp Pulse Resp BP Sys/Corcoran Pulse Ox Last 24 Hr 97.9 F-98.9 F 66-86 18-20 136-162/62-87 93-95 GENERAL: The patient is awake, alert, and fully oriented, in no acute distress. HEAD: Normal with no signs of trauma. EYES: PERRL, extraocular movements intact, sclera anicteric, conjunctiva clear. No ptosis. ENT: Ears normal, nares patent, oropharynx clear without exudates, moist mucous membranes. NECK: Trachea midline, full range of motion, supple. LUNGS: Breath sounds equal, clear to auscultation bilaterally, no wheezes HEART: Regular rate and rhythm ABDOMEN: Soft, nontender, nondistended, normoactive bowel sounds EXTREMITIES: no edema. NEUROLOGICAL: Normal speech, gait not observed. Laboratory Results - last 24 hr 10/13/19 10/14/19 10/14/19 11:30 06:00 07:30 WBC 5.0 RBC 3.77 Hgb 11.8 Hct 35.4 D MCV 93.9 MCH 31.3 MCHC 33.4 RDW 14.2 Plt Count 206 D MPV 9.0 Absolute Neuts (auto) 3.0 Neutrophils % 60.2 D Lymphocytes % 27.0 D Monocytes % 10.3 H D Eosinophils % 2.1 D Basophils % 0.4 Nucleated RBC % 0 Sodium 142 Potassium 3.7 Chloride 106 Carbon Dioxide 29 Anion Gap 7 L BUN 9.0 Creatinine 0.7 Est GFR (CKD-EPI)AfAm 97.54 Est GFR (CKD-EPI)NonAf 84.16 Random Glucose 98 Lactic Acid 1.9 Calcium 8.4 L Phosphorus 3.4 Magnesium 2.2 Total Bilirubin 1.6 H AST 15 ALT 14 Alkaline Phosphatase 73 Total Protein 5.8 L Albumin 3.0 L Active Medications Generic Name Dose Route Start Last Admin Trade Name Freq PRN Reason Stop Dose Admin Sodium Chloride 1,000 mls @ 100 mls/hr 10/13/19 14:45 10/14/19 03:03 Normal Saline - IV 100 mls/hr ASDIR NEVA Administration Metoprolol Tartrate 5 mg 10/14/19 02:11 10/14/19 03:08 Lopressor Injection - IVPB 5 mg Q4H PRN Administration HYPERTENSION ASSESSMENT/PLAN: Problem List - Problems (1) SBO (small bowel obstruction) Assessment/Plan: Clinically improved. No abdominal pain, nausea/vomiting resolved. Having bms and + flatus per surgery, abdominal xray shows improvement. started on clears advance diet as tolerated continue medical management of SBO surgery following Code(s): K56.609 - UNSP INTESTNL OBST, UNSP TO PARTIAL VERSUS COMPLETE OBST (2) Afib Assessment/Plan: resume eliquis, start back on home metoprolol Code(s): I48.91 - UNSPECIFIED ATRIAL FIBRILLATION (3) Hypertension Assessment/Plan: on amlodopine 5mg, metoprolol 50mg daily Code(s): I10 - ESSENTIAL (PRIMARY) HYPERTENSION (4) DVT prophylaxis Assessment/Plan: on eliquis Code(s): Z29.9 - ENCOUNTER FOR PROPHYLACTIC MEASURES, UNSPECIFIED Visit type - Emergency Visit Emergency Visit: Yes ED Registration Date: 10/13/19 Care time: The patient presented to the Emergency Department on the above date and was hospitalized for further evaluation of their emergent condition. - New Patient This patient is new to me today: Yes Date on this admission: 10/14/19 - Critical Care Critical Care patient: No - Discharge Referral Referred to [facility] Med P.C.: No
[2019-10-14] MEDS: APIXABAN 2.5 MG TABLET PO SCH (21:11)
[2019-10-15 09:18] LABS: BASO % 0.5 % (0-2.0); EOS % 3.3 % (0-4.5); HEMATOCRIT 38.4 % (32.4-45.2); HEMOGLOBIN 12.5 GM/dL (10.7-15.3); LYMPH % 31.7 % (8-40); MCH 30.3 pg (25.7-33.7); MCHC 32.4 g/dl (32.0-36.0); MEAN CELL VOLUME 93.6 fl (80-96); MEAN PLT VOLUME 8.9 fl (7.5-11.1); NEUT % 52.5 % (42.8-82.8); PLATELET COUNT 224 K/MM3 (134-434); RBC 4.11 M/mm3 (3.60-5.2); RDW 13.8 % (11.6-15.6); WHITE BLOOD COUNT 4.6 K/mm3 (4.0-10.0)
[2019-10-15] MEDS: APIXABAN 2.5 MG TABLET PO SCH ×2 (09:21→21:17)
[2019-10-15] MEDS: amLODIPine BESYLATE 5 MG TABLET (FP) PO SCH (09:21)
[2019-10-15 09:51] LABS: ALBUMIN 3.2 g/dl (3.4-5.0); BILIRUBIN,TOTAL 1.8 mg/dL (0.2-1); BLOOD UREA NITROGEN 7.8 mg/dL (7-18); CREATININE 0.7 mg/dL (0.55-1.3); MAGNESIUM 2.1 mg/dL (1.8-2.4); POTASSIUM 3.1 mmol/L (3.5-5.1); TOT PROT 6.2 g/dl (6.4-8.2)
[2019-10-15] MEDS ORDERED: POTASSIUM CHLORIDE ORAL LIQUID 20 MEQ/15 ML PO ONE (10:15)
[2019-10-15 13:08] LABS: PLATELET ESTIMATE NORMAL
--- NOTE | 2019-10-15 14:13 | PN ---
Physical Exam: SUBJECTIVE: Patient seen and examined. she denies any abdominal pain, no nausea or vomiting. having flatus OBJECTIVE: Patient is a 74 year old female with a past medical history of breast cancer (s/p b/l mastectomy) ,Afib (on eliquis, s/p ablation and cardioversion 04/2019) colon perforation 2/2 colonoscopy s/p colostomy and reversal 18 yrs ago, hx of GBS (from flu shot) presents to ED for abdominal pain. imaging: Abdomen/ Pelvis CT- partial SBO Vital Signs Period Temp Pulse Resp BP Sys/Corocran Pulse Ox Last 24 Hr 98.5 F-98.6 F 73-75 18-20 151-155/79-85 96 GENERAL: The patient is awake, alert, and fully oriented, in no acute distress. HEAD: Normal with no signs of trauma. EYES: PERRL, extraocular movements intact, sclera anicteric, conjunctiva clear. No ptosis. ENT: Ears normal, nares patent, oropharynx clear without exudates, moist mucous membranes. NECK: Trachea midline, full range of motion, supple. LUNGS: Breath sounds equal, clear to auscultation bilaterally, no wheezes HEART: Regular rate and rhythm ABDOMEN: Soft, nontender, nondistended, normoactive bowel sounds EXTREMITIES: no edema. NEUROLOGICAL: Normal speech, gait not observed. Laboratory Results - last 24 hr 10/13/19 10/15/19 10/15/19 11:30 07:34 07:34 WBC 4.6 RBC 4.11 Hgb 12.5 Hct 38.4 MCV 93.6 MCH 30.3 MCHC 32.4 RDW 13.8 Plt Count 224 MPV 8.9 Absolute Neuts (auto) 2.4 Neutrophils % 52.5 Lymphocytes % 31.7 Monocytes % 12.0 H Eosinophils % 3.3 Basophils % 0.5 Nucleated RBC % 0 Platelet Estimate Normal Sodium 141 Potassium 3.1 L Chloride 104 Carbon Dioxide 28 Anion Gap 10 BUN 7.8 Creatinine 0.7 Est GFR (CKD-EPI)AfAm 97.54 Est GFR (CKD-EPI)NonAf 84.16 Random Glucose 94 Calcium 9.0 Magnesium 2.1 Total Bilirubin 1.8 H AST 16 ALT 14 Alkaline Phosphatase 74 Total Protein 6.2 L Albumin 3.2 L COVID-19 (ROMINA) Not detected Active Medications Generic Name Dose Route Start Last Admin Trade Name Freq PRN Reason Stop Dose Admin Amlodipine Besylate 5 mg 10/15/19 10:00 10/15/19 09:21 Norvasc - PO 5 mg DAILY NEVA Administration Apixaban 5 mg 10/14/19 22:00 10/15/19 09:21 Eliquis - PO 5 mg BID NEVA Administration Metoprolol Succinate 50 mg 10/15/19 10:00 10/15/19 09:20 Toprol Xl - PO 50 mg DAILY NEVA Administration ASSESSMENT/PLAN: Problem List - Problems (1) SBO (small bowel obstruction) Assessment/Plan: Clinically improved. No abdominal pain, nausea/vomiting resolved. Having bms and + flatus per surgery, abdominal xray shows improvement. tolerated clears, diet advanced to full liquids. RD recommends soft diet/low fiber. advance diet as tolerated continue medical management of SBO surgery following Code(s): K56.609 - UNSP INTESTNL OBST, UNSP TO PARTIAL VERSUS COMPLETE OBST (2) Afib Assessment/Plan: resume eliquis, start back on home metoprolol Code(s): I48.91 - UNSPECIFIED ATRIAL FIBRILLATION (3) Hypertension Assessment/Plan: controlled on amlodopine 5mg, metoprolol 50mg daily Code(s): I10 - ESSENTIAL (PRIMARY) HYPERTENSION (4) DVT prophylaxis Assessment/Plan: on eliquis Code(s): Z29.9 - ENCOUNTER FOR PROPHYLACTIC MEASURES, UNSPECIFIED Visit type - Emergency Visit Emergency Visit: Yes ED Registration Date: 10/13/19 Care time: The patient presented to the Emergency Department on the above date and was hospitalized for further evaluation of their emergent condition. - New Patient This patient is new to me today: No - Critical Care Critical Care patient: No - Discharge Referral Referred to [facility] Med P.C.: No
--- NOTE | 2019-10-15 14:27 | PN ---
Progress Note (short form) - Note Progress Note: SURGERY 74yo F h/o SBO, pt seen and examined at bedside. Pt states that she is tolerating clears and that abd pain is improved. Pt denies fever, chills, n/v. Pt passing flatus but no BM. Last Vital Signs Temp Pulse Resp BP Pulse Ox 98.6 F 74 18 155/79 96 10/15/19 05:00 10/15/19 05:00 10/15/19 05:00 10/15/19 05:00 10/14/19 21:00 CBC, BMP 10/15/19 07:34 10/15/19 07:34 PE: Gen: A&O x3 Resp: breathing comfortably Abd: soft, nondistended, nontender Ext: no edema Problem List - Problems (1) SBO (small bowel obstruction) Assessment/Plan: Plan -pt appears to be doing better, will adv to regular diet -pt is cleared from surgical standpoint for discharge. Please contact surgery team if any acute changes. PT discussed with Dr. Raman who agrees with plan. Code(s): K56.609 - UNSP INTESTNL OBST, UNSP TO PARTIAL VERSUS COMPLETE OBST
[2019-10-15] MEDS ORDERED: ACETAMINOPHEN 325 MG TABLET (FP) PO PRN (16:54)
[2019-10-16 08:03] LABS: BASO % 0.6 % (0-2.0); EOS % 2.7 % (0-4.5); HEMATOCRIT 41.4 % (32.4-45.2); HEMOGLOBIN 13.5 GM/dL (10.7-15.3); LYMPH % 29.8 % (8-40); MCH 30.3 pg (25.7-33.7); MCHC 32.6 g/dl (32.0-36.0); MEAN PLT VOLUME 8.5 fl (7.5-11.1); MONO % 11.2 % (3.8-10.2); NEUT % 55.7 % (42.8-82.8); PLATELET COUNT 238 K/MM3 (134-434); RBC 4.45 M/mm3 (3.60-5.2); RDW 13.8 % (11.6-15.6); WHITE BLOOD COUNT 4.6 K/mm3 (4.0-10.0)
[2019-10-16 08:28] LABS: ALBUMIN 3.5 g/dl (3.4-5.0); BILIRUBIN,TOTAL 1.9 mg/dL (0.2-1); BLOOD UREA NITROGEN 9.2 mg/dL (7-18); CREATININE 0.7 mg/dL (0.55-1.3); MAGNESIUM 2.2 mg/dL (1.8-2.4); POTASSIUM 3.4 mmol/L (3.5-5.1); TOT PROT 6.9 g/dl (6.4-8.2)
[2019-10-16] MEDS ORDERED: POTASSIUM CHLORIDE ORAL LIQUID 20 MEQ/15 ML PO ONE (08:51)
[2019-10-16] MEDS: amLODIPine BESYLATE 5 MG TABLET (FP) PO SCH (09:28)
[2019-10-16] MEDS: APIXABAN 2.5 MG TABLET PO SCH ×2 (09:28→21:15)
[2019-10-16] MEDS: PANTOPRAZOLE 40 MG TABLET PO SCH (09:28)
--- NOTE | 2019-10-16 15:40 | PN ---
Physical Exam: SUBJECTIVE: Patient seen and examined at the bedside. patient ambulating the hallways. denies abdominal pain. has not had a bm x 3 days. OBJECTIVE: Patient is a 74 year old female with a past medical history of breast cancer (s/p b/l mastectomy) ,Afib (on eliquis, s/p ablation and cardioversion 04/2019) colon perforation 2/2 colonoscopy s/p colostomy and reversal 18 yrs ago, hx of GBS (from flu shot) presents to ED for abdominal pain. Patient was found to have a partial SBO on abdominal imaging. She is tolerating her diet, and denies any abdominal pain, no nausea or vomiting. Her abdomen is soft on deep palpation. Patient has not yet had a bowel movement now for 3 days. Will monitor and anticipate discharge tomorrow. imaging: Abdomen/ Pelvis CT- partial SBO Period Temp Pulse Resp BP Sys/Corcoran Pulse Ox Last 24 Hr 97.5 F-98.9 F 67-78 18-20 140-157/79-88 95-97 GENERAL: The patient is awake, alert, and fully oriented, in no acute distress. HEAD: Normal with no signs of trauma. EYES: PERRL, extraocular movements intact, sclera anicteric, conjunctiva clear. No ptosis. ENT: Ears normal, nares patent, oropharynx clear without exudates, moist mucous membranes. NECK: Trachea midline, full range of motion, supple. LUNGS: Breath sounds equal, clear to auscultation bilaterally, no wheezes HEART: Regular rate and rhythm ABDOMEN: Soft, nontender, nondistended, normoactive bowel sounds EXTREMITIES: no edema. NEUROLOGICAL: Normal speech, gait not observed Laboratory Results - last 24 hr 10/16/19 10/16/19 07:11 07:11 WBC 4.6 RBC 4.45 Hgb 13.5 Hct 41.4 MCV 93.0 MCH 30.3 MCHC 32.6 RDW 13.8 Plt Count 238 MPV 8.5 Absolute Neuts (auto) 2.6 Neutrophils % 55.7 Lymphocytes % 29.8 Monocytes % 11.2 H Eosinophils % 2.7 Basophils % 0.6 Nucleated RBC % 0 Sodium 139 Potassium 3.4 L Chloride 102 Carbon Dioxide 31 Anion Gap 6 L BUN 9.2 Creatinine 0.7 Est GFR (CKD-EPI)AfAm 97.54 Est GFR (CKD-EPI)NonAf 84.16 Random Glucose 88 Calcium 9.0 Magnesium 2.2 Total Bilirubin 1.9 H AST 15 ALT 14 Alkaline Phosphatase 84 Total Protein 6.9 Albumin 3.5 Active Medications Generic Name Dose Route Start Last Admin Trade Name Norman PRN Reason Stop Dose Admin Acetaminophen 650 mg 10/15/19 16:54 Tylenol - PO Q6H PRN PAIN LEVEL 7 - 10 Amlodipine Besylate 5 mg 10/15/19 10:00 10/16/19 09:28 Norvasc - PO 5 mg DAILY NEVA Administration Apixaban 5 mg 10/14/19 22:00 10/16/19 09:28 Eliquis - PO 5 mg BID NEVA Administration Metoprolol Succinate 50 mg 10/15/19 10:00 10/16/19 09:28 Toprol Xl - PO 50 mg DAILY NEVA Administration Pantoprazole Sodium 40 mg 10/16/19 10:00 10/16/19 09:28 Protonix - PO 40 mg DAILY NEVA Administration ASSESSMENT/PLAN: Problem List - Problems (1) SBO (small bowel obstruction) Assessment/Plan: Clinically improved. No abdominal pain, nausea/vomiting resolved. last bowel movement 10/13/2019 per surgery, abdominal xray shows improvement. tolerated clears, diet advanced to soft diet. continue medical management of SBO surgery following Code(s): K56.609 - UNSP INTESTNL OBST, UNSP TO PARTIAL VERSUS COMPLETE OBST (2) Afib Assessment/Plan: resume eliquis, start back on home metoprolol Code(s): I48.91 - UNSPECIFIED ATRIAL FIBRILLATION (3) Hypertension Assessment/Plan: controlled on amlodopine 5mg, metoprolol 50mg daily Code(s): I10 - ESSENTIAL (PRIMARY) HYPERTENSION (4) DVT prophylaxis Assessment/Plan: on eliquis Code(s): Z29.9 - ENCOUNTER FOR PROPHYLACTIC MEASURES, UNSPECIFIED Visit type - Emergency Visit Emergency Visit: Yes ED Registration Date: 10/13/19 Care time: The patient presented to the Emergency Department on the above date and was hospitalized for further evaluation of their emergent condition. - New Patient This patient is new to me today: No - Critical Care Critical Care patient: No - Discharge Referral Referred to [facility] Med P.C.: No
[2019-10-17 07:37] LABS: BASO % 0.6 % (0-2.0); EOS % 2.8 % (0-4.5); HEMATOCRIT 39.5 % (32.4-45.2); HEMOGLOBIN 13.1 GM/dL (10.7-15.3); LYMPH % 35.5 % (8-40); MCH 30.6 pg (25.7-33.7); MCHC 33.1 g/dl (32.0-36.0); MEAN CELL VOLUME 92.6 fl (80-96); MEAN PLT VOLUME 8.3 fl (7.5-11.1); MONO % 12.1 % (3.8-10.2); PLATELET COUNT 254 K/MM3 (134-434); RBC 4.27 M/mm3 (3.60-5.2); RDW 13.6 % (11.6-15.6); WHITE BLOOD COUNT 4.8 K/mm3 (4.0-10.0)
[2019-10-17 08:11] LABS: ALBUMIN 3.4 g/dl (3.4-5.0); BILIRUBIN,TOTAL 1.7 mg/dL (0.2-1); CALCIUM 9.1 mg/dL (8.5-10.1); CREATININE 0.7 mg/dL (0.55-1.3); POTASSIUM 3.8 mmol/L (3.5-5.1); TOT PROT 6.7 g/dl (6.4-8.2)
[2019-10-17] MEDS ORDERED: BISACODYL 10 MG SUPP.RECT PR ONE (09:00)
[2019-10-17] MEDS: APIXABAN 2.5 MG TABLET PO SCH (10:23)
[2019-10-17] MEDS: PANTOPRAZOLE 40 MG TABLET PO SCH (10:23)
[2019-10-17] MEDS: amLODIPine BESYLATE 5 MG TABLET (FP) PO SCH (10:23)
[2019-10-17 13:16] VITALS: BP 144/72; PULSE 70; TEMP 98.1
--- NOTE | 2019-10-17 13:16 | DS ---
Physical Exam: SUBJECTIVE: Patient seen and examined at the bedside. in no acute distress. feels well overall and had two BMs today OBJECTIVE: discharge home Patient is a 74 year old female with a past medical history of breast cancer (s/p b/l mastectomy) ,Afib (on eliquis, s/p ablation and cardioversion 04/2019) colon perforation 2/2 colonoscopy s/p colostomy and reversal 18 yrs ago, hx of GBS (from flu shot) presents to ED for abdominal pain. Patient was found to have a partial SBO on abdominal imaging. She is tolerating her diet, and denies any abdominal pain, no nausea or vomiting. Patient had a BM today, brown and solid. for outpatient follow up. Vital Signs Period Temp Pulse Resp BP Sys/Corcoran Pulse Ox Last 24 Hr 97.4 F-98.2 F 68-78 18-20 140-150/74-83 96 PHYSICAL EXAM GENERAL: The patient is awake, alert, and fully oriented, in no acute distress. HEAD: Normal with no signs of trauma. EYES: PERRL, extraocular movements intact, sclera anicteric, conjunctiva clear. No ptosis. ENT: Ears normal, nares patent, oropharynx clear without exudates, moist mucous membranes. NECK: Trachea midline, full range of motion, supple. LUNGS: Breath sounds equal, clear to auscultation bilaterally, no wheezes HEART: Regular rate and rhythm ABDOMEN: Soft, nontender, nondistended, normoactive bowel sounds EXTREMITIES: no edema. NEUROLOGICAL: Normal speech, gait not observed LABS Laboratory Results - last 24 hr 10/17/19 10/17/19 06:57 06:57 WBC 4.8 RBC 4.27 Hgb 13.1 Hct 39.5 MCV 92.6 MCH 30.6 MCHC 33.1 RDW 13.6 Plt Count 254 MPV 8.3 Absolute Neuts (auto) 2.4 Neutrophils % 49.0 Lymphocytes % 35.5 Monocytes % 12.1 H Eosinophils % 2.8 Basophils % 0.6 Nucleated RBC % 0 Sodium 140 Potassium 3.8 Chloride 103 Carbon Dioxide 30 Anion Gap 7 L BUN 13.0 Creatinine 0.7 Est GFR (CKD-EPI)AfAm 97.54 Est GFR (CKD-EPI)NonAf 84.16 Random Glucose 100 Calcium 9.1 Magnesium 2.0 Total Bilirubin 1.7 H AST 15 ALT 15 Alkaline Phosphatase 80 Total Protein 6.7 Albumin 3.4 HOSPITAL COURSE: Date of Admission:10/13/19 Date of Discharge: 10/17/19 Minutes to complete discharge: 45 Discharge Summary Problems reviewed: Yes Reason For Visit: SMALL BOWEL OBSTRUCTION Current Active Problems Afib (Acute) DVT prophylaxis (Acute) Hypertension (Acute) SBO (small bowel obstruction) (Acute) Condition: Fair - Instructions Diet, Activity, Other Instructions: Mrs. Atkinson: You were admitted to [facility] for small bowel obstruction. You were medically treated with an nasogastric tube and diet advancement. Here are our discharge instructions: FOLLOW UPS: Please follow up with your primary care doctor so that a inside sales account representative can be assigned to you. Please follow up with your primary care doctor within 1-2 weeks after discharge for post hospital follow up. MEDICATIONS: Please resume your home medications. New Medication: Protonix 40mg once per day. DIET: Please continue a soft diet/LOW fiber. Do not take metamucil You should have a bowel movement daily. You can try dulcolax suppositories if you become constipated. Thank you for allowing us to care for you. Referrals: Daisy Wilson MD [Primary Care Provider] - Disposition: HOME - Home Medications Comprehensive Discharge Medication List: Ambulatory Orders Amlodipine Besylate [Norvasc -] 5 mg PO DAILY 10/13/19 Apixaban [Eliquis] 5 mg PO BID 10/13/19 Metoprolol Succinate 50 mg PO DAILY 10/13/19 Pantoprazole Sodium [Protonix -] 40 mg PO DAILY #90 tablet.ec 10/17/19 Problem List - Problems (1) SBO (small bowel obstruction) Assessment/Plan: no abdominal pain, + flatus, had 2 solid brown BMs today. tolerating advance diet. patient agrees to see a GI specialist that accept her insurance. recommend soft, low fiber diet. Code(s): K56.609 - UNSP INTESTNL OBST, UNSP TO PARTIAL VERSUS COMPLETE OBST (2) Afib Assessment/Plan: eliquis and metoprolol Code(s): I48.91 - UNSPECIFIED ATRIAL FIBRILLATION (3) Hypertension Assessment/Plan: controlled on amlodopine 5mg, metoprolol 50mg daily Code(s): I10 - ESSENTIAL (PRIMARY) HYPERTENSION (4) DVT prophylaxis Assessment/Plan: on eliquis Code(s): Z29.9 - ENCOUNTER FOR PROPHYLACTIC MEASURES, UNSPECIFIED This patient is new to me today: No Emergency Visit: Yes ED Registration Date: 10/13/19 Care time: The patient presented to the Emergency Department on the above date and was hospitalized for further evaluation of their emergent condition. Critical Care patient: No - Discharge Referral Referred to [facility] Med P.C.: No
== END 2019-10-17 15:34 | disposition home or self-care (01) | DRG 389 ==
LOC: JER 04:40 → JERBED 10:53 → J6WEST-2 10-14 01:47 → J7W 10-16 09:54
PROVIDERS: ADMIT Internal Medicine; ATTEND Nurse Practitioner Family
PROC: 0D9670Z Drainage of Stomach with Drainage Device, Via Natural or Artificial Opening (ICD-10-PCS; principal; 2019-10-13)
DX: K56.600 Partial intestinal obstruction, unspecified as to cause (principal); E87.2 Acidosis; K80.20 Calculus of gallbladder without cholecystitis without obstruction; Z85.3 Personal history of malignant neoplasm of breast; I10 Essential (primary) hypertension; I48.91 Unspecified atrial fibrillation
CPT/HCPCS: 36415; 71045-TC-FY; 74018-TC-FY; 74019-TC-FY; 74177-TC; 76705-TC; 80053; 82550; 83605; 83690; 83735; 84100; 84484; 85025; 85610; 85730; 86850; 86900; 86901; 93005; 93010; 99285-25; J0131; Q9967; U0003

== ENCOUNTER 2020-05-20 08:02 | Day surgery (SDC) | payer OTHER ==
[2020-05-19 12:32] VITALS: BMI 25.8
[2020-05-20] MEDS ORDERED: PROPOFOL 20 ML ONE (08:20)
[2020-05-20] MEDS ORDERED: LIDOCAINE HCL/PF 2% SDV 5ML VIAL ONE (08:32)
[2020-05-20 09:34] VITALS: BP 149/72; PULSE 70; TEMP 98
== END 2020-05-20 10:00 | disposition home or self-care (01) ==
LOC: FASU-ENDO 08:02
PROVIDERS: ATTEND Internal Medicine Gastroenterology
PROC: 0DB78ZX Excision of Stomach, Pylorus, Via Natural or Artificial Opening Endoscopic, Diagnostic (ICD-10-PCS; 2020-05-20)
PROC: 0DB98ZX Excision of Duodenum, Via Natural or Artificial Opening Endoscopic, Diagnostic (ICD-10-PCS; principal; 2020-05-20 08:41)
DX: K29.70 Gastritis, unspecified, without bleeding (principal)
CPT/HCPCS: 88305-TC; 88342-TC